=== PATIENT | male | born 1980 | race African-American/Black ===

== ENCOUNTER 2021-03-11 02:41 | Emergency (ER) | payer SELFPAY ==
[~2021-03-11] VITALS: Ht 182.9 cm; Wt 118.2 kg
[2021-03-11 04:54] LABS: STREP SCREEN NEGATIVE
[2021-03-11] MEDS ORDERED: FLONASEALLERGY NS (05:04)
[2021-03-11 05:22] VITALS: BP 155/83; PULSE 82; TEMP 98.8
== END 2021-03-11 05:22 | disposition home or self-care (01) ==
LOC: COL.ER 02:41
PROVIDERS: Emergency Medicine
DX: R06.02 Shortness of breath (principal); R05 Cough; J02.9 Acute pharyngitis, unspecified; R06.2 Wheezing; J34.89 Other specified disorders of nose and nasal sinuses; Z20.822 Contact with and (suspected) exposure to COVID-19
CPT/HCPCS: J1100